=== PATIENT | female | born 1960 | race Caucasian/White ===

== ENCOUNTER 2016-12-30 16:35 | Emergency (ER) | payer SELFPAY ==
[2016-12-30 16:36] VITALS: BMI 28.9
[2016-12-30 16:49] VITALS: O2SAT 98
--- NOTE | 2016-12-30 17:07 | C.PDOC ---
History Of Present Illness 56 y/o female, with history of diabetes, hyperlipidemia, born with 1 kidney, presents to ED with c/o left flank pain for 3 days. Denies fevers, nausea, vomiting, or other complaints. Time Seen by Provider: 12/30/16 16:58 Chief Complaint (Nursing): Female Genitourinary History Per: Patient History/Exam Limitations: no limitations Onset/Duration Of Symptoms: Days Current Symptoms Are (Timing): Still Present Associated Symptoms: denies: Fever, Chills, Nausea, Vomiting, Diarrhea Recent travel outside of the [place]: No Abnormal Vaginal Bleeding: No Past Medical History Reviewed: Historical Data, Nursing Documentation, Vital Signs Vital Signs: Last Vital Signs Temp 97.6 F 12/30/16 19:29 Pulse 76 12/30/16 19:29 Resp 18 12/30/16 19:29 BP 128/85 12/30/16 19:29 Pulse Ox 98 12/30/16 19:29 - Medical History PMH: Gastritis, Hyperlipidemia Surgical History: Family History: States: Unknown Family Hx - Social History Hx Alcohol Use: No Hx Substance Use: No - Immunization History Hx Tetanus Toxoid Vaccination: Yes Hx Influenza Vaccination: No (2 WKS AGO) Hx Pneumococcal Vaccination: No Review Of Systems Except As Marked, All Systems Reviewed And Found Negative. Constitutional: Negative for: Fever, Chills Cardiovascular: Negative for: Chest Pain Respiratory: Negative for: Cough, Shortness of Breath, Wheezing Gastrointestinal: Positive for: Other (left flank pain ). Negative for: Nausea , Vomiting Genitourinary: Negative for: Dysuria, Hematuria, Pelvic Pain Skin: Negative for: Rash Physical Exam - Physical Exam Appears: Non-toxic, No Acute Distress Skin: Normal Color, Warm, Dry Head: Atraumatic, Normacephalic Oral Mucosa: Moist Chest: Symmetrical Cardiovascular: Rhythm Regular Respiratory: Normal Breath Sounds, No Rales, No Rhonchi, No Wheezing Gastrointestinal/Abdominal: Normal Exam, Soft, No Tenderness, No Guarding, No Rebound Back: CVA Tenderness (left) Extremity: Normal ROM, Capillary Refill (< @ sec.) Neurological/Psych: Oriented x3 ED Course And Treatment - Laboratory Results Result Diagrams: 12/30/16 17:20 12/30/16 17:20 O2 Sat by Pulse Oximetry: 98 (RA) Pulse Ox Interpretation: Normal Medical Decision Making Medical Decision Making: ro renal stone, uti/pyelo labs imagng pendign CT abdomen/pelvis, labs, UA ordered and reviewed. Treated with Tylenol. pt notified to discuss reslts of ct with pmd. pain improved. Disposition - Disposition Referrals: Count Includes [facility] [Outside] [facility] [Outside] Chino Lopez MD [Staff Provider] - Disposition: HOME/ ROUTINE Disposition Time: 07:00 Condition: STABLE Additional Instructions: please follow up with your doctor/specialist. return to er with worsening symptoms or concerns Prescriptions: Ciprofloxacin [Cipro] 500 mg PO BID #14 tab Instructions: Urinary Tract Infection in Women (GEN), Flank Pain (ED) Forms: [employer] (Sami) Print Language: BANGLADESHI - Clinical Impression Clinical Impression: Flank pain, UTI (urinary tract infection) - Scribe Statement The provider has reviewed the documentation as recorded by the Scribe SM All medical record entries made by the Scribe were at my direction and personally dictated by me. I have reviewed the chart and agree that the record accurately reflects my personal performance of the history, physical exam, medical decision making, and the department course for this patient. I have also personally directed, reviewed, and agree with the discharge instructions and disposition.
[2016-12-30 17:27] LABS: BASO # 0.1 K/uL (0.0-0.2); BASO % 0.7 % (0.0-2.0); EOS % 0.5 % (0.0-4.0); HEMATOCRIT 41.4 % (34.0-47.0); LYMPH # 2.6 K/uL (1.0-4.3); LYMPH % 32.7 % (20.0-40.0); MEAN CELL VOLUME 84.2 fL (81.0-99.0); MEAN CORPUSCULAR HEMOGLOBIN 28.3 pg (27.0-31.0); MEAN CORPUSCULAR HGB CONC 33.6 g/dL (33.0-37.0); MEAN PLATELET VOLUME 8.6 fL (7.2-11.7); MONO # 0.4 K/uL (0.0-0.8); MONO % 4.8 % (0.0-10.0); RED CELL DISTRIBUTION WIDTH 13.7 % (11.5-14.5); WHITE BLOOD COUNT 7.9 K/uL (4.8-10.8)
[2016-12-30 17:36] LABS: RBC URINE 2 /hpf (0-3); URINE BACTERIA RARE (<OCC); URINE BILIRUBIN NEGATIVE (NEGATIVE); URINE BLOOD NEGATIVE (NEGATIVE); URINE COLOR Straw (YELLOW); URINE GLUCOSE (UA) 3+ mg/dL (Normal); URINE KETONE NEGATIVE (NEGATIVE); URINE LEUKOCYTE ESTERASE 1+ Leu/uL (Negative); URINE PROTEIN NEGATIVE (NEGATIVE); URINE UROBILINOGEN NORMAL mg/dL (0.2-1.0); WBC URINE 13 /hpf (0-5)
[2016-12-30 17:37] LABS: INR 0.9
[2016-12-30 17:38] LABS: ALB/GLOB RATIO 1.4 (1.0-2.1); ALKALINE PHOSPHATASE 123 U/L (38-126); ALT/SGPT 40 U/L (9-52); AST/SGOT 24 U/L (14-36); BILIRUBIN,TOTAL 0.7 mg/dL (0.2-1.3); BLOOD UREA NITROGEN 10 mg/dL (7-17); CARBON DIOXIDE 25 mmol/L (22-30); CHLORIDE 98 mmol/L (98-107); GFR AFRICAN-AMERICAN > 60; GLUCOSE,RANDOM 250 mg/dL (65-105); POTASSIUM 3.8 mmol/L (3.6-5.2); SODIUM 135 mmol/L (132-148); TOTAL PROTEIN 7.8 g/dL (6.3-8.3)
[2016-12-30] MEDS ORDERED: Ciprofloxacin 400mg/200ml D5W 400 MG/200 ML BAG IVPB STA (17:44)
[2016-12-30] MEDS ORDERED: Ciprofloxacin 400mg/200ml D5W 400 MG/200 ML BAG IVPB ONE (17:53)
--- NOTE | 2016-12-30 17:59 | CT ---
PROCEDURE: CT Abdomen and Pelvis without Oral or IV contrast. HISTORY: abd pain COMPARISON: CT abdomen and pelvis without contrast performed 12/30/16 TECHNIQUE: Contiguous axial images of the abdomen and pelvis. No oral or IV contrast administered. Coronal and Sagittal reformats generated and reviewed. Radiation dose: Total exam DLP = 398.20 mGy-cm. This CT exam was performed using one or more of the following dose reduction techniques: Automated exposure control, adjustment of the mA and/or kV according to patient size, and/or use of iterative reconstruction technique. FINDINGS: There is limited evaluation of the solid organs without the administration of IV contrast. LOWER THORAX: Mild bibasilar atelectasis. No visible pleural effusion or pneumothorax. LIVER: Unremarkable unenhanced appearance. GALLBLADDER AND BILE DUCTS: Unremarkable unenhanced appearance. PANCREAS: Unremarkable unenhanced appearance. SPLEEN: Unremarkable unenhanced appearance. ADRENALS: Soft tissue within the right upper quadrant appears to reflect an adrenal gland with a low density nodule containing an associated punctate calcification. Unremarkable unenhanced appearance of the left adrenal gland. KIDNEYS AND URETERS: Absent right kidney. No hydronephrosis or obstructing calculus of the left kidney. BLADDER: The urinary bladder appears unremarkable. REPRODUCTIVE: Uterus is present. APPENDIX: The appendix appears within normal limits of caliber. No secondary signs of acute appendicitis. BOWEL: The stomach is nondistended. Lack of oral contrast limits evaluation for bowel pathology. The bowel loops appear within normal limits of caliber without evidence of intestinal obstruction. PERITONEUM: No significant free fluid. No definite free air. LYMPH NODES: No bulky lymphadenopathy identified. VASCULATURE: No aortic aneurysm. BONES: No acute osseous abnormality is detected. OTHER FINDINGS: 7 mm fat containing umbilical hernia. Calcifications of the bilateral gluteal soft tissues, likely injection granulomas. IMPRESSION: Mild bibasilar atelectasis. Soft tissue within the right upper quadrant appears to reflect an adrenal gland with a low density nodule containing an associated punctate calcification. Absent right kidney. No hydronephrosis or obstructing calculus of the left kidney. 7 mm fat containing umbilical hernia. Additional incidental findings as above.
[2016-12-30 19:31] VITALS: BP 128/85; PULSE 76; RESP 18; TEMP 97.6
== END 2016-12-30 19:46 | disposition home or self-care (01) ==
LOC: C.ER 16:35
DX: N39.0 Urinary tract infection, site not specified (principal); R10.9 Unspecified abdominal pain
CPT/HCPCS: 74176; 80053; 81001; 83690; 84703; 85025; 85610; 85730; 87086; 96374; 99284; J0744

== ENCOUNTER 2017-01-23 12:06 | Emergency (ER) | payer OTHER ==
[2017-01-23 12:06] VITALS: BMI 28.9
[2017-01-23 12:11] VITALS: BP 146/87; PULSE 85; RESP 20; TEMP 97.9; O2SAT 97
--- NOTE | 2017-01-23 13:02 | C.PDOC ---
History Of Present Illness 57 y/o F p/w facial rash x 3 weeks. Patient states rash was present over the entire face initially, seemed to improve, and then recurred in its current distribution more severely. She states the skin feels burning, tight, and warm. She denies any difficulty breathing or swallowing. Denies fever, stiff neck, vomiting. She states she does use facial creams. She states she has follow up with PMD on Wednesday. Time Seen by Provider: 01/23/17 12:48 Chief Complaint (Nursing): Abnormal Skin Integrity Past Medical History Vital Signs: Last Vital Signs Temp 97.9 F 01/23/17 12:10 Pulse 85 01/23/17 12:10 Resp 20 01/23/17 12:10 BP 146/87 01/23/17 12:10 Pulse Ox 97 01/23/17 13:02 - Medical History PMH: Gastritis, Hyperlipidemia Surgical History: Family History: States: Unknown Family Hx - Social History Hx Alcohol Use: No Hx Substance Use: No - Immunization History Hx Tetanus Toxoid Vaccination: Yes Hx Influenza Vaccination: No (2 WKS AGO) Hx Pneumococcal Vaccination: No Review Of Systems Except As Marked, All Systems Reviewed And Found Negative. Constitutional: Negative for: Fever Respiratory: Negative for: Shortness of Breath Physical Exam - Physical Exam Additional Physical Exam Comments: Head: NC/AT Eyes: PERRL ENT: No swelling, no pharyngeal erythema. Resp: No accessory muscle use. Skin: Erythematous, blanching, nontender rash to chin, philtrum. ED Course And Treatment O2 Sat by Pulse Oximetry: 97 Medical Decision Making Medical Decision Making: Patient without fever or tenderness. Unlikely cellulitis. Instructed to return to ED immediately for any fever. Other differential includes scleroderma, dermatitis, Lupus, urticaria. Instructed patient to keep appointment on Wednesday for follow up. Will initially treat with Benadryl and Pepcid and 1 dose decadron now. Disposition - Disposition Referrals: Ashley Mas MD [Medical Doctor] - Disposition: HOME/ ROUTINE Disposition Time: 13:02 Condition: STABLE Prescriptions: DiphenhydrAMINE [Benadryl] 2 cap PO Q8 #25 cap Famotidine [Pepcid] 1 tab PO BID #14 tab Instructions: Acute Rash (ED) Forms: [employer] (Yoruba) - Clinical Impression Clinical Impression: Facial rash
== END 2017-01-23 13:19 | disposition home or self-care (01) ==
LOC: C.ER 12:06
DX: R21 Rash and other nonspecific skin eruption (principal); E78.5 Hyperlipidemia, unspecified
CPT/HCPCS: 99283; J8540

== ENCOUNTER 2017-12-02 23:19 | Inpatient (IN) | payer OTHER ==
[2017-12-02 23:20] VITALS: BMI 28.9
[2017-12-02] MEDS ORDERED: Alum-Mag Hydrox-Simethicone Susp (30 mL) PO STA (23:58)
[2017-12-03] MEDS ORDERED: Alum-Mag Hydrox-Simethicone Susp (30 mL) ONE (00:06)
--- NOTE | 2017-12-03 00:38 | C.PDOC ---
History Of Present Illness 57 y/o F c PMHx HLD, DM p/w epigastric pain x 3 hours. Pain is epigastric, radiates up to chest and to throat, tastes bitter taste in her mouth. States symptoms began while eating. Has never been evaluated medically for these symptoms and did not take anything at home. Denies fever, cough, dyspnea, vomiting, diaphoresis. <SharminFemi Mcneil - Last Filed: 12/03/17 00:42> <SharminFemi Mcneil - Last Filed: 12/03/17 00:42> <Evaristo Johnson E - Last Filed: 12/03/17 01:47> Time Seen by Provider: 12/02/17 23:32 Chief Complaint (Nursing): Chest Pain Past Medical History Vital Signs: Last Vital Signs Temp 98.3 F 12/02/17 23:25 Pulse 83 12/02/17 23:25 Resp 14 12/02/17 23:25 BP 138/88 12/02/17 23:25 Pulse Ox 98 12/02/17 23:25 - Medical History PMH: Gastritis, Hyperlipidemia Surgical History: Family History: States: Unknown Family Hx - Social History Hx Alcohol Use: No Hx Substance Use: No - Immunization History Hx Tetanus Toxoid Vaccination: Yes Hx Influenza Vaccination: No (2 WKS AGO) Hx Pneumococcal Vaccination: No <Femi Finney - Last Filed: 12/03/17 00:42> Vital Signs: Last Vital Signs Temp 98.3 F 12/02/17 23:25 Pulse 83 12/02/17 23:25 Resp 14 12/02/17 23:25 BP 138/88 12/02/17 23:25 Pulse Ox 98 12/03/17 00:42 <Evaristo Johnson E - Last Filed: 12/03/17 01:47> Review Of Systems Except As Marked, All Systems Reviewed And Found Negative. Constitutional: Negative for: Fever Respiratory: Negative for: Shortness of Breath <SharminFemi Mcneil - Last Filed: 12/03/17 00:42> Physical Exam - Physical Exam Additional Physical Exam Comments: Gen: NAD Head: NC/AT Eyes: PERRL ENT: MMM Neck: Supple Chest: No tenderness CV: Reg rate Lungs: CTA b/l Abd: Soft, NT, ND Back: No CVA tenderness Extremities: No edema Skin: No rash Neuro: Alert, no focal deficit <Femi Finney - Last Filed: 12/03/17 00:42> ED Course And Treatment O2 Sat by Pulse Oximetry: 98 <Femi Finney - Last Filed: 12/03/17 00:42> - Laboratory Results Result Diagrams: 12/03/17 00:31 12/03/17 00:31 <Evaristo Johnson E - Last Filed: 12/03/17 01:47> Medical Decision Making Medical Decision Making: EKG NSR 80 bpm, RBBB, no ST elevations. Unchanged from 2014. Pepcid, Maalox administered. CXR no consolidation. States feels "50% better" after medications. <SharminFemi Mcneil - Last Filed: 12/03/17 00:42> Medical Decision Making: signed over @ 0100 to f/u labs and adm for chest discomfort pt seen and examined, vague epigastric discomfort with palp sharp tenderness to b/l sternal costochondral areas, no rash much of initial complaint improved with Maalox. pt resting comfortably on re-eval. pt insists these are NOT her initial complaints, and that the presenting discomfort is "inside" d/w Dr. Xavier, Hospitalist, ok to admit @ 0145 <Evaristo Johnson E - Last Filed: 12/03/17 01:47> Disposition <Femi Finney - Last Filed: 12/03/17 00:42> Doctor Will See Patient In The: Hospital Counseled Patient/Family Regarding: Studies Performed, Diagnosis - Disposition Disposition Time: 01:47 <Evaristo Johnson - Last Filed: 12/03/17 01:47> - Disposition Disposition: HOSPITALIZED Condition: GOOD Forms: [employer] (Armenian) - Clinical Impression Clinical Impression: Chest discomfort, Chest wall discomfort
[2017-12-03 00:39] LABS: BASO % 0.6 % (0.0-2.0); EOS # 0.1 K/uL (0.0-0.7); EOS % 1.1 % (0.0-4.0); HEMOGLOBIN 13.2 g/dL (11.0-16.0); LYMPH # 2.9 K/uL (1.0-4.3); MEAN CORPUSCULAR HEMOGLOBIN 28.9 pg (27.0-31.0); MONO # 0.4 K/uL (0.0-0.8); MONO % 6.1 % (0.0-10.0); NEUT # 3.7 K/uL (1.8-7.0); NEUT % 52.2 % (50.0-75.0); NRBC % 0.1 % (0.0-2.0); RBC 4.56 Mil/uL (3.80-5.20); RED CELL DISTRIBUTION WIDTH 13.7 % (11.5-14.5); WHITE BLOOD COUNT 7.2 K/uL (4.8-10.8)
[2017-12-03 00:56] LABS: ALB/GLOB RATIO 1.7 (1.0-2.1); ALBUMIN 4.4 g/dL (3.5-5.0); ALT/SGPT 48 U/L (9-52); AST/SGOT 27 U/L (14-36); BLOOD UREA NITROGEN 19 mg/dL (7-17); CALCIUM 9.6 mg/dl (8.6-10.4); GFR NON-AFRICAN AMERICAN > 60; LIPASE 142 U/L (23-300)
[2017-12-03 01:08] LABS: CK-MB 0.87 ng/mL (0.0-3.38)
[2017-12-03 02:43] VITALS: RESP 20
--- NOTE | 2017-12-03 02:58 | CP.PCM.HP ---
<Yoshi Duff - Last Filed: 12/03/17 03:18> History of Present Illness - History of Present Illness History of Present Illness: CC: stomach burning 57 Y F/ w PMHx of DM, HLD, ectopic , 1 kidney (congenital), 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 Patient states she was eating her dinner around 8pm and started having intense stomach burning that radiated up through her chest into her mouth. Patient states she additionally has a bitter taste in her mouth. Patient states burning censation is 5/10 and had seen her primary doctor for a similar complaint about 1 week ago and it was recommended for a endoscopy but patient has not had a ance to schedule it yet. Patient denies chest pain, SOB, nausea, vomiting, fevers, chills, dysuria, change in bowel movements, headaches, vision changes ROS: chest pain, SOB, nausea, vomiting, fevers, chills, dysuria, change in bowel movements, headaches, vision changes PMD: Dr. Mas ([facility]) PMHx: DM, HLD, ectopic , 1 kidney (congenital), 9cm resection Meds: Mulhall 1000mg 3 daily, metformin 1000mg Q12H Glimepiride 4mg daily, Lipator 40mg daily, januvia 100mg daily, vit D3 1000U daily, ranitidine 300mg daily PSHx: 9 cm bowel removal 2/2 to obstruction, ectopic Allergies: Penicillin - hives SHx: Denies tobacco, ETOH, illicit drug use FHx: Father - diabetes, mother - healthy Present on Admission - Present on Admission Any Indicators Present on Admission: No Review of Systems - Constitutional Constitutional: absent: Chills, Headache, Increased Appetite - EENT Eyes: absent: Blurred Vision Ears: absent: Decreased Hearing Nose/Mouth/Throat: absent: Nasal Congestion, Dry Mouth, Mouth Pain - Cardiovascular Cardiovascular: absent: Chest Pain, Dyspnea, Leg Edema - Respiratory Respiratory: absent: Dyspnea, Wheezing, Pain on Inspiration - Gastrointestinal Gastrointestinal: Heartburn. absent: Abdominal Pain, Nausea, Vomiting - Genitourinary Genitourinary: absent: Change in Urinary Stream - Musculoskeletal Musculoskeletal: absent: Abnormal Gait, Arthralgias - Neurological Neurological: absent: Numbness Past Patient History - Infectious Disease Hx of Infectious Diseases: None - Past Social History Smoking Status: Never Smoked - RENAL Other/Comment: KIDNEY INFECTION - ENDOCRINE/METABOLIC Hx Diabetes Mellitus Type 2: Yes - GASTROINTESTINAL Hx Gastritis: Yes - PSYCHIATRIC Hx Substance Use: No - SURGICAL HISTORY Hx Section: Yes (X2) Other/Comment: intestinal obstruction with colectomy. ectopic preg. - ANESTHESIA Hx Anesthesia: Yes Hx Anesthesia Reactions: No Meds Allergies/Adverse Reactions: Allergies Allergy/AdvReac Type Severity Reaction Status Date / Time Penicillins Allergy Verified 12/02/17 23:30 Physical Exam - Constitutional Appears: Non-toxic, No Acute Distress - Head Exam Head Exam: ATRAUMATIC, NORMAL INSPECTION, NORMOCEPHALIC - Eye Exam Eye Exam: EOMI, Normal appearance, PERRL Pupil Exam: NORMAL ACCOMODATION - ENT Exam ENT Exam: Mucous Membranes Moist - Respiratory Exam Respiratory Exam: Clear to Auscultation Bilateral, NORMAL BREATHING PATTERN. absent: Rales, Rhonchi, Wheezes - Cardiovascular Exam Cardiovascular Exam: +S1, +S2. absent: Systolic Murmur - GI/Abdominal Exam GI & Abdominal Exam: Guarding, Normal Bowel Sounds, Soft Additional comments: patient was gaurding on deep palpation in all 4 quads no deformities observed patient otherwise lying comfortably - Extremities Exam Extremities exam: Positive for: normal inspection. Negative for: calf tenderness, pedal edema - Back Exam Back exam: absent: CVA tenderness (L), CVA tenderness (R) - Neurological Exam Neurological exam: Alert, CN II-XII Intact, Oriented x3 - Psychiatric Exam Psychiatric exam: Normal Affect, Normal Mood - Skin Skin Exam: Dry, Intact, Normal Color, Warm Results - Vital Signs Recent Vital Signs: Last Vital Signs Temp 98 F 12/03/17 02:40 Pulse 74 12/03/17 02:40 Resp 20 12/03/17 02:40 BP 131/87 12/03/17 02:40 Pulse Ox 98 12/03/17 02:40 - Labs Result Diagrams: 12/03/17 00:31 12/03/17 00:31 Labs: Laboratory Results - last 24 hr 12/03/17 12/03/17 00:31 00:31 WBC 7.2 RBC 4.56 Hgb 13.2 Hct 38.8 MCV 85.0 MCH 28.9 MCHC 34.0 RDW 13.7 Plt Count 271 MPV 9.0 Neut % (Auto) 52.2 Lymph % (Auto) 40.0 Norman % (Auto) 6.1 Eos % (Auto) 1.1 Baso % (Auto) 0.6 Neut # (Auto) 3.7 Lymph # (Auto) 2.9 Norman # (Auto) 0.4 Eos # (Auto) 0.1 Baso # (Auto) 0.0 Sodium 141 Potassium 4.2 Chloride 102 Carbon Dioxide 28 Anion Gap 15 BUN 19 H Creatinine 0.7 Est GFR ( Amer) > 60 Est GFR (Non-Af Amer) > 60 Random Glucose 188 H Calcium 9.6 Total Bilirubin 0.4 AST 27 ALT 48 Alkaline Phosphatase 97 Total Creatine Kinase 52 CK-MB (Mass) 0.87 Troponin I < 0.0120 Total Protein 7.0 Albumin 4.4 Globulin 2.6 Albumin/Globulin Ratio 1.7 Lipase 142 Assessment & Plan - Assessment and Plan (Free Text) Assessment: 57 Y F/ w PMHx of DM, HLD, ectopic , 1 kidney (congenital), 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 R/o ACS - Trops x1 negative, EKG RBBB, CXR no acute changes visualized, will await for official read - Vitals WNL - Repeat TIMA & EKG @ 6am & 12pm - F/u TSH Hyperlipidemia - C/w home medications: Lipitor 40mg HS Mulhall 3 1000mg daily - F/u lipid panel DM - c/w home medications: metformin 1000mg BID januvia 100 mg daily glimepiride 4mg daily - F/u HgA1C - accuchecks ACHS - low ISS Prophylasis - DVT: risk score 1, Out bed ambulation - GI: ranitidine 150 mg BID <Willem Xavier - Last Filed: 12/03/17 06:31> Results - Vital Signs Recent Vital Signs: Last Vital Signs Temp 98 F 12/03/17 02:40 Pulse 74 12/03/17 02:40 Resp 20 12/03/17 02:40 BP 131/87 12/03/17 02:40 Pulse Ox 98 12/03/17 02:40 - Labs Result Diagrams: 12/03/17 00:31 12/03/17 00:31 Labs: Laboratory Results - last 24 hr 12/03/17 12/03/17 12/03/17 00:31 00:31 06:17 WBC 7.2 RBC 4.56 Hgb 13.2 Hct 38.8 MCV 85.0 MCH 28.9 MCHC 34.0 RDW 13.7 Plt Count 271 MPV 9.0 Neut % (Auto) 52.2 Lymph % (Auto) 40.0 Norman % (Auto) 6.1 Eos % (Auto) 1.1 Baso % (Auto) 0.6 Neut # (Auto) 3.7 Lymph # (Auto) 2.9 Norman # (Auto) 0.4 Eos # (Auto) 0.1 Baso # (Auto) 0.0 Sodium 141 Potassium 4.2 Chloride 102 Carbon Dioxide 28 Anion Gap 15 BUN 19 H Creatinine 0.7 Est GFR ( Amer) > 60 Est GFR (Non-Af Amer) > 60 POC Glucose (mg/dL) 124 H Random Glucose 188 H Calcium 9.6 Total Bilirubin 0.4 AST 27 ALT 48 Alkaline Phosphatase 97 Total Creatine Kinase 52 CK-MB (Mass) 0.87 Troponin I < 0.0120 Total Protein 7.0 Albumin 4.4 Globulin 2.6 Albumin/Globulin Ratio 1.7 Lipase 142 Assessment & Plan - Date & Time Date: 12/03/17 (I have seen and examined the patient. I agree with the findings and plan of care as documented by Dr. Duff. Patient with chest pain. History of diabetes. Continue home meds. ROMIx3 with EKG. Observe on tele. Aspirin and Statin. Monitor for acute changes.) Time: 06:30 Attending/Attestation - Attestation I have personally seen and examined this patient.: Yes I have fully participated in the care of the patient.: Yes I have reviewed all pertinent clinical information: Yes
[2017-12-03] MEDS ORDERED: Dextrose 50% SYRINGE Inj (50 ml) IV PRN (03:00)
[2017-12-03] MEDS ORDERED: Glucagon Recombinant 1 mg Inj IM PRN (03:00)
[2017-12-03] MEDS: (Novolog) Insulin Aspart, Recombinant 100 u/ml 10 ml vial SC SCH ×2 (08:26→11:46)
[2017-12-03 08:32] VITALS: TEMP 97.9
[2017-12-03 08:33] LABS: HDL CHOLESTEROL 62 mg/dL (30-70)
--- NOTE | 2017-12-03 08:34 | RAD ---
Date of service: 12/03/2017 HISTORY: epigastric pain radiating to throat COMPARISON: No prior. FINDINGS: LUNGS: The lungs are well inflated and clear. PLEURA: No pleural effusions or pneumothorax. CARDIOVASCULAR: The heart is normal in size. No aortic atherosclerotic calcification present. OSSEOUS STRUCTURES: Within normal limits for the patient's age. VISUALIZED UPPER ABDOMEN: Normal. OTHER FINDINGS: None. IMPRESSION: No active pulmonary disease.
[2017-12-03 08:39] LABS: CK-MB 0.58 ng/mL (0.0-3.38)
[2017-12-03 08:44] LABS: LDL CHOLESTEROL 68 mg/dL (0-129)
--- NOTE | 2017-12-03 09:24 | CP.PCM.PN ---
Subjective - Date & Time of Evaluation Date of Evaluation: 12/03/17 Time of Evaluation: 09:24 - Subjective Subjective: Progress Note for Hospitalist service Objective - Vital Signs/Intake and Output Vital Signs (last 24 hours): Temp Pulse Resp BP Pulse Ox 97.9 F 78 20 110/74 97 12/03/17 08:00 12/03/17 08:00 12/03/17 08:00 12/03/17 08:00 12/03/17 08:00 - Medications Medications: Current Medications Dextrose (Dextrose 50% Inj) 0 ml IV STAT PRN; Protocol PRN Reason: Hypoglycemia Protocol Dextrose (Glutose 15) 0 gm PO ONCE PRN; Protocol PRN Reason: Hypoglycemia Protocol Ergocalciferol (Drisdol 50,000 Intl Units Cap) 1 cap PO QWK [facility] Famotidine (Pepcid) 20 mg PO BID [facility] Glimepiride (Amaryl) 4 mg PO DAILY [facility] Glucagon (Glucagen Diagnostic Kit) 0 mg IM STAT PRN; Protocol PRN Reason: Hypoglycemia Protocol Heparin Sodium (Porcine) (Heparin) 5,000 units SC Q12 [facility] Dextrose (Dextrose 5% In Water 1000 Ml) 1,000 mls @ 0 mls/hr IV .Q0M PRN; Protocol PRN Reason: Hypoglycemia Protocol Insulin Aspart (Novolog) 0 unit SC ACHS [facility]; Protocol Last Admin: 12/03/17 08:26 Dose: Not Given Metformin HCl (Glucophage) 1,000 mg PO BID [facility] Cllsx-2-Rxkb Ethyl Esters (Lovaza) 1 gm PO BID [facility] Rosuvastatin Calcium (Crestor) 20 mg PO HS [facility] Sitagliptin Phosphate (Januvia) 100 mg PO DAILY [facility] - Labs Labs: 12/03/17 00:31 12/03/17 00:31
[2017-12-03] MEDS ORDERED: Omega-3-Acid Ethyl Esters 1 GM Cap PO SCH (10:00)
[2017-12-03] MEDS ORDERED: Ergocalciferol 50,000 Intl Units Cap PO SCH (10:00)
[2017-12-03 13:27] LABS: CK-MB 0.65 ng/mL (0.0-3.38)
--- NOTE | 2017-12-03 17:02 | CP.PCM.DIS ---
<Jona Vanessa - Last Filed: 12/03/17 20:53> Provider - Provider Date of Admission: 12/03/17 01:39 Attending physician: Willem Xavier MD Primary care physician: Dr. Mas Time Spent in preparation of Discharge (in minutes): 35 Hospital Course - Lab Results Lab Results: Most Recent Lab Values WBC 7.2 K/uL (4.8-10.8) 12/03/17 00:31 RBC 4.56 Mil/uL (3.80-5.20) 12/03/17 00:31 Hgb 13.2 g/dL (11.0-16.0) 12/03/17 00:31 Hct 38.8 % (34.0-47.0) 12/03/17 00:31 MCV 85.0 fL (81.0-99.0) 12/03/17 00:31 MCH 28.9 pg (27.0-31.0) 12/03/17 00:31 MCHC 34.0 g/dL (33.0-37.0) 12/03/17 00:31 RDW 13.7 % (11.5-14.5) 12/03/17 00:31 Plt Count 271 K/uL (130-400) 12/03/17 00:31 MPV 9.0 fL (7.2-11.7) 12/03/17 00:31 Neut % (Auto) 52.2 % (50.0-75.0) 12/03/17 00:31 Lymph % (Auto) 40.0 % (20.0-40.0) 12/03/17 00:31 Nobles % (Auto) 6.1 % (0.0-10.0) 12/03/17 00:31 Eos % (Auto) 1.1 % (0.0-4.0) 12/03/17 00:31 Baso % (Auto) 0.6 % (0.0-2.0) 12/03/17 00:31 Neut # (Auto) 3.7 K/uL (1.8-7.0) 12/03/17 00:31 Lymph # (Auto) 2.9 K/uL (1.0-4.3) 12/03/17 00:31 Nobles # (Auto) 0.4 K/uL (0.0-0.8) 12/03/17 00:31 Eos # (Auto) 0.1 K/uL (0.0-0.7) 12/03/17 00:31 Baso # (Auto) 0.0 K/uL (0.0-0.2) 12/03/17 00:31 Sodium 141 mmol/L (132-148) 12/03/17 00:31 Potassium 4.2 mmol/L (3.6-5.2) 12/03/17 00:31 Chloride 102 mmol/L (98-107) 12/03/17 00:31 Carbon Dioxide 28 mmol/L (22-30) 12/03/17 00:31 Anion Gap 15 (10-20) 12/03/17 00:31 BUN 19 mg/dL (7-17) H 12/03/17 00:31 Creatinine 0.7 mg/dL (0.7-1.2) 12/03/17 00:31 Est GFR ( Amer) > 60 12/03/17 00:31 Est GFR (Non-Af Amer) > 60 12/03/17 00:31 POC Glucose (mg/dL) 114 mg/dL (65-110) H 12/03/17 11:40 Random Glucose 188 mg/dL (65-105) H 12/03/17 00:31 Hemoglobin A1c 9.8 % (4.2-6.5) H D 12/03/17 07:11 Calcium 9.6 mg/dl (8.6-10.4) 12/03/17 00:31 Total Bilirubin 0.4 mg/dL (0.2-1.3) 12/03/17 00:31 AST 27 U/L (14-36) 12/03/17 00:31 ALT 48 U/L (9-52) 12/03/17 00:31 Alkaline Phosphatase 97 U/L (38-126) 12/03/17 00:31 Total Creatine Kinase 43 U/L (30-135) 12/03/17 12:58 CK-MB (Mass) 0.65 ng/mL (0.0-3.38) 12/03/17 12:58 Troponin I < 0.0120 ng/mL (0.00-0.120) 12/03/17 12:58 Total Protein 7.0 g/dL (6.3-8.3) 12/03/17 00:31 Albumin 4.4 g/dL (3.5-5.0) 12/03/17 00:31 Globulin 2.6 gm/dL (2.2-3.9) 12/03/17 00:31 Albumin/Globulin Ratio 1.7 (1.0-2.1) 12/03/17 00:31 Triglycerides 313 mg/dL (0-149) H 12/03/17 07:11 Cholesterol 184 mg/dL (0-199) 12/03/17 07:11 LDL Cholesterol Direct 68 mg/dL (0-129) 12/03/17 07:11 HDL Cholesterol 62 mg/dL (30-70) 12/03/17 07:11 Lipase 142 U/L (23-300) 12/03/17 00:31 TSH 3rd Generation 2.62 mIU/L (0.46-4.68) 12/03/17 07:11 - Hospital Course Hospital Course: On admission: 57 Y F/ w PMHx of DM, HLD, ectopic , 1 kidney (congenital), 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 Patient states she was eating her dinner around 8pm and started having intense stomach burning that radiated up through her chest into her mouth. Patient states she additionally has a bitter taste in her mouth. Patient states burning censation is 5/10 and had seen her primary doctor for a similar complaint about 1 week ago and it was recommended for a endoscopy but patient has not had a chance to schedule it yet. Patient denies chest pain, SOB, nausea, vomiting, fevers, chills, dysuria, change in bowel movements, headaches, vision changes Hospital course: Patient was admitted for chest pain to rule out acute coronary syndrome. Serial troponins were negative. Serial EKGs revealed Right bundle branch block which was unchanged from prior EKG 01/29/2014. Patient's chest discomfort resolved during hospitalization. Patient's vital signs remained stable during hospitalization. Labwork revealed patient had elevated A1c of 9.8. Patient stated that she was recently added on Glimepiride, in addition to her Metformin and Januvia. Upon discharge, patient did not experience any chest discomfort, shortness of breath or palpitations, fevers, chills, headache, dizziness, nausea, vomiting. Imaging: CXR no acute disease Discharge summary: Patient is medically stable to be discharged home. Patient advised to follow up with PMD Dr. Mas, and ALIC[facility] for outpatient EGD and outpatient stress test. Patient noted to have RBBB unchanged from prior EKG in 01/29/2014. No ST changes noted on EKG. Patient was noted to have elevated Hemoglobin A1c 9.8. Patient was recently started on Glimepiride 4mg daily (8days ago), in addition to Metformin 1000mg PO and Januvia. The importance of following up with PMD regarding A1c levels was discussed with patient. Patient stated that she expressed understanding and agreed to follow up with checkroom chief and PMD regarding her diabetes. Prescription: Pepcid 20mg PO twice daily by mouth. Disp # 30 (thirty) El paciente est mdicamente estable para ser dado de faviola a vásquez domicilio. Se recomienda a los pacientes que realicen un seguimiento con PMD Dr. Mas y AL[facility] para la EGD ambulatoria y la prueba de esfuerzo ambulatoria. El paciente observ que el RBBB no haba cambiado con respecto al ECG anterior en 29/01/2014. No se observaron cambios de ST en el ECG. Se observ que el paciente prasad hemoglobina A1c elevada 9.8. El paciente comenz recientemente con Glimepirida 4 mg al da (hace 8 johnson), adems de Metformin 1000 mg PO y Januvia. La importancia del seguimiento con PMD con respecto a los niveles de A1c se discuti con el paciente. La paciente dijo que expres comprensin y mishel hacer un seguimiento con un nutricionista y PMD con respecto a vásquez diabetes. Prescripcin: Pepcid 20mg PO dos veces al da por va oral. Disp # 30 (treinta) Discharge Exam - Head Exam Head Exam: ATRAUMATIC, NORMAL INSPECTION, NORMOCEPHALIC - Eye Exam Eye Exam: EOMI, PERRL - ENT Exam ENT Exam: Mucous Membranes Moist - Neck Exam Neck exam: Full Rom Additional comments: no thyromegaly, no lymphadenopathy - Respiratory Exam Respiratory Exam: Clear to PA & Lateral. absent: Rales, Rhonchi, Wheezes, Stridor - Cardiovascular Exam Cardiovascular Exam: REGULAR RHYTHM, +S1, +S2. absent: Gallop, Rubs, Systolic Murmur - GI/Abdominal Exam GI & Abdominal Exam: Normal Bowel Sounds, Soft, Tenderness (minimal epigastric tenderness ). absent: Diminished Bowel Sounds, Distended, Firm, Guarding, Rigid - Back Exam Back exam: absent: CVA tenderness (L), CVA tenderness (R) - Neurological Exam Neurological exam: Alert, Oriented x3 - Psychiatric Exam Psychiatric exam: Normal Affect, Normal Mood - Skin Skin Exam: Dry, Intact, Warm Discharge Plan - Discharge Medications Prescriptions: RX: Famotidine [Pepcid] 20 mg PO BID #60 tab - Follow Up Plan Condition: STABLE Disposition: HOME/ ROUTINE Instructions: Type 2 Diabetes, Cardiac Stress Test, Diabetes Diet , Chest Pain (DC), Upper GI Endoscopy (DC), Famotidine Additional Instructions: Patient is medically stable to be discharged home. Patient advised to follow up with PMD Dr. Mas, and GI for outpatient EGD and outpatient stress test. Patient noted to have RBBB unchanged from prior EKG in 01/29/2014. No ST changes noted on EKG. Patient was noted to have elevated Hemoglobin A1c 9.8. Patient was recently started on Glimepiride 4mg daily (8days ago), in addition to Metformin 1000mg PO and Januvia. The importance of following up with PMD regarding A1c levels was discussed with patient. Patient stated that she expressed understanding and agreed to follow up with checkroom chief and PMD regarding her diabetes. Prescription: Pepcid 20mg PO twice daily by mouth. Disp # 30 (thirty) El paciente est mdicamente estable para ser dado de faviola a vásquez domicilio. Se recomienda a los pacientes que realicen un seguimiento con PMD Dr. Mas y [facility] para la EGD ambulatoria y la prueba de esfuerzo ambulatoria. El paciente observ que el RBBB no haba cambiado con respecto al ECG anterior en 29/01/2014. No se observaron cambios de ST en el ECG. Se observ que el paciente prasad hemoglobina A1c elevada 9.8. El paciente comenz recientemente con Glimepirida 4 mg al da (hace 8 johnson), adems de Metformin 1000 mg PO y Januvia. La importancia del seguimiento con PMD con respecto a los niveles de A1c se discuti con el paciente. La paciente dijo que expres comprensin y mishel hacer un seguimiento con un nutricionista y PMD con respecto a vásquez diabetes. Prescripcin: Pepcid 20mg PO dos veces al da por va oral. Disp # 30 (treinta) <Dia Mcdaniel - Last Filed: 12/11/17 17:11> Provider - Provider Date of Admission: 12/03/17 01:39 Attending physician: Willem Xavier MD Hospital Course - Lab Results Lab Results: Most Recent Lab Values WBC 7.2 K/uL (4.8-10.8) 12/03/17 00:31 RBC 4.56 Mil/uL (3.80-5.20) 12/03/17 00:31 Hgb 13.2 g/dL (11.0-16.0) 12/03/17 00:31 Hct 38.8 % (34.0-47.0) 12/03/17 00:31 MCV 85.0 fL (81.0-99.0) 12/03/17 00:31 MCH 28.9 pg (27.0-31.0) 12/03/17 00:31 MCHC 34.0 g/dL (33.0-37.0) 12/03/17 00:31 RDW 13.7 % (11.5-14.5) 12/03/17 00:31 Plt Count 271 K/uL (130-400) 12/03/17 00:31 MPV 9.0 fL (7.2-11.7) 12/03/17 00:31 Neut % (Auto) 52.2 % (50.0-75.0) 12/03/17 00:31 Lymph % (Auto) 40.0 % (20.0-40.0) 12/03/17 00:31 Nobles % (Auto) 6.1 % (0.0-10.0) 12/03/17 00:31 Eos % (Auto) 1.1 % (0.0-4.0) 12/03/17 00:31 Baso % (Auto) 0.6 % (0.0-2.0) 12/03/17 00:31 Neut # (Auto) 3.7 K/uL (1.8-7.0) 12/03/17 00:31 Lymph # (Auto) 2.9 K/uL (1.0-4.3) 12/03/17 00:31 Nobles # (Auto) 0.4 K/uL (0.0-0.8) 12/03/17 00:31 Eos # (Auto) 0.1 K/uL (0.0-0.7) 12/03/17 00:31 Baso # (Auto) 0.0 K/uL (0.0-0.2) 12/03/17 00:31 Sodium 141 mmol/L (132-148) 12/03/17 00:31 Potassium 4.2 mmol/L (3.6-5.2) 12/03/17 00:31 Chloride 102 mmol/L (98-107) 12/03/17 00:31 Carbon Dioxide 28 mmol/L (22-30) 12/03/17 00:31 Anion Gap 15 (10-20) 12/03/17 00:31 BUN 19 mg/dL (7-17) H 12/03/17 00:31 Creatinine 0.7 mg/dL (0.7-1.2) 12/03/17 00:31 Est GFR ( Amer) > 60 12/03/17 00:31 Est GFR (Non-Af Amer) > 60 12/03/17 00:31 POC Glucose (mg/dL) 76 mg/dL (65-110) 12/03/17 12:36 Random Glucose 188 mg/dL (65-105) H 12/03/17 00:31 Hemoglobin A1c 9.8 % (4.2-6.5) H D 12/03/17 07:11 Calcium 9.6 mg/dl (8.6-10.4) 12/03/17 00:31 Total Bilirubin 0.4 mg/dL (0.2-1.3) 12/03/17 00:31 AST 27 U/L (14-36) 12/03/17 00:31 ALT 48 U/L (9-52) 12/03/17 00:31 Alkaline Phosphatase 97 U/L (38-126) 12/03/17 00:31 Total Creatine Kinase 43 U/L (30-135) 12/03/17 12:58 CK-MB (Mass) 0.65 ng/mL (0.0-3.38) 12/03/17 12:58 Troponin I < 0.0120 ng/mL (0.00-0.120) 12/03/17 12:58 Total Protein 7.0 g/dL (6.3-8.3) 12/03/17 00:31 Albumin 4.4 g/dL (3.5-5.0) 12/03/17 00:31 Globulin 2.6 gm/dL (2.2-3.9) 12/03/17 00:31 Albumin/Globulin Ratio 1.7 (1.0-2.1) 12/03/17 00:31 Triglycerides 313 mg/dL (0-149) H 12/03/17 07:11 Cholesterol 184 mg/dL (0-199) 12/03/17 07:11 LDL Cholesterol Direct 68 mg/dL (0-129) 12/03/17 07:11 HDL Cholesterol 62 mg/dL (30-70) 12/03/17 07:11 Lipase 142 U/L (23-300) 12/03/17 00:31 TSH 3rd Generation 2.62 mIU/L (0.46-4.68) 12/03/17 07:11 Attending/Attestation - Attestation I have personally seen and examined this patient.: Yes I have fully participated in the care of the patient.: Yes I have reviewed all pertinent clinical information, including history, physical exam and plan: Yes
[2017-12-03 17:24] VITALS: BP 118/81; PULSE 83; O2SAT 95
--- NOTE | 2017-12-06 17:35 | CARD ---
APPROVED REPORT Date of service: 12/03/2017 EKG Measurement Heart [id number] <Conclusion> Normal sinus rhythm Right bundle branch block Abnormal ECG
--- NOTE | 2017-12-06 17:35 | CARD ---
APPROVED REPORT Date of service: 12/03/2017 EKG Measurement Heart [id number] <Conclusion> Normal sinus rhythm Right bundle branch block Abnormal ECG
--- NOTE | 2017-12-06 18:18 | CARD ---
APPROVED REPORT Date of service: 12/02/2017 EKG Measurement Heart [id number] <Conclusion> Normal sinus rhythm Right bundle branch block Abnormal ECG
== END 2017-12-03 18:20 | disposition home or self-care (01) | DRG 203 ==
LOC: C.ER 23:19 → C.9E 12-03 01:39 → C.5S 12-03 01:59
PROVIDERS: ADMIT Family Medicine; ATTEND Family Medicine
DX: R07.89 Other chest pain (principal); Q60.0 Renal agenesis, unilateral; E11.9 Type 2 diabetes mellitus without complications; E78.5 Hyperlipidemia, unspecified; I45.10 Unspecified right bundle-branch block; Z83.3 Family history of diabetes mellitus; Z79.84 Long term (current) use of oral hypoglycemic drugs; Z90.49 Acquired absence of other specified parts of digestive tract; Z87.19 Personal history of other diseases of the digestive system

== ENCOUNTER 2018-01-18 12:38 | Emergency (ER) | payer SELFPAY ==
[2018-01-18 13:00] VITALS: BMI 25.2
[2018-01-18 13:06] VITALS: BP 109/76; PULSE 78; RESP 18; TEMP 97; O2SAT 97
[2018-01-18 14:32] LABS: SQUAMOUS EPITHIAL < 1 /hpf (0-5); URINE BACTERIA RARE (<OCC); URINE BILIRUBIN NEGATIVE (NEGATIVE); URINE BLOOD NEGATIVE (NEGATIVE); URINE CLARITY Clear (Clear); URINE COLOR Colorless (YELLOW); URINE GLUCOSE (UA) NORMAL (Normal); URINE LEUKOCYTE ESTERASE NEG Leu/uL (Negative); URINE PROTEIN NEGATIVE (NEGATIVE); URINE UROBILINOGEN NORMAL mg/dL (0.2-1.0)
--- NOTE | 2018-01-18 14:50 | C.PDOC ---
History Of Present Illness 58 year old female presents to the ED for evaluation of dysuria which began 10 days ago, but worsened over the last 4 days. Patient is concerned that she may have a urinary tract infection. Patient reports history of nephrectomy (for unknown reasons). She denies fever, chills, nausea, vomiting. Time Seen by Provider: 01/18/18 13:38 Chief Complaint (Nursing): Abdominal Pain History Per: Patient History/Exam Limitations: no limitations Onset/Duration Of Symptoms: Days (10) Current Symptoms Are (Timing): Worse (past 4 days) Associated Symptoms: Urinary Symptoms (dysuria ). denies: Fever, Chills, Nausea, Vomiting Additional History Per: Patient Past Medical History Reviewed: Historical Data, Nursing Documentation, Vital Signs Vital Signs: Last Vital Signs Temp 97 F L 01/18/18 13:00 Pulse 78 01/18/18 13:00 Resp 18 01/18/18 13:00 BP 109/76 01/18/18 13:00 Pulse Ox 97 01/18/18 13:00 - Medical History PMH: Gastritis, Hyperlipidemia Surgical History: Other Surgeries: nephrectomy Family History: States: Unknown Family Hx - Social History Hx Alcohol Use: No Hx Substance Use: No - Immunization History Hx Tetanus Toxoid Vaccination: Yes Hx Influenza Vaccination: Yes Hx Pneumococcal Vaccination: Yes Review Of Systems Constitutional: Negative for: Fever, Chills Gastrointestinal: Negative for: Nausea, Vomiting Genitourinary: Positive for: Dysuria Physical Exam - Physical Exam Appears: Non-toxic, No Acute Distress Skin: Normal Color, Warm, Dry Head: Atraumatic, Normacephalic Eye(s): bilateral: Normal Inspection Oral Mucosa: Moist Neck: Supple Back: No CVA Tenderness, Paraspinal Tenderness (minor, lumbar ) Pelvic: Other (deferred) Extremity: Normal ROM, Capillary Refill (less than 2 seconds ) Neurological/Psych: Oriented x3, Normal Speech, Normal Cognition ED Course And Treatment - Laboratory Results Lab Interpretation: Normal (ua neg.) O2 Sat by Pulse Oximetry: 97 (on RA) Pulse Ox Interpretation: Normal Progress Note: Urinalysis ordered and reviewed. Motrin PO given. On reassessment, patient is resting comfortably, showing no signs of distress and reports an improvement in her pain. Patient is stable for discharge. She is advised to f/u with her PMD within 1-2 days for further evaluation and/or return to the ED if sx persist or worsen. 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 Disposition Doctor Will See Patient In The: Office Counseled Patient/Family Regarding: Studies Performed, Diagnosis - Disposition Referrals: [facility] [Outside] [facility] [Outside] [facility] [Outside] [facility] [Outside] Disposition: HOME/ ROUTINE Disposition Time: 14:50 Condition: GOOD Additional Instructions: NO hay infeccio'n en la orina NO hay infeccion en vásquez rinon (katlyn) ibuprofeno 400-600 mg cada 6 horas rose necessario para dolor del espalda sigue en la [facility] para oskar cuidados de la vagina. Instructions: Low Back Pain in Adults Forms: [employer] (Cymro) Print Language: FRENCH - Clinical Impression Clinical Impression: Vulvar discomfort, Low back pain - Scribe Statement The provider has reviewed the documentation as recorded by the Scribe (Radha Salgado) Provider Attestation: All medical record entries made by the Scribe were at my direction and personally dictated by me. I have reviewed the chart and agree that the record accurately reflects my personal performance of the history, physical exam, me dical decision making, and the department course for this patient. I have also personally directed, reviewed, and agree with the discharge instructions and disposition.
== END 2018-01-18 14:59 | disposition home or self-care (01) ==
LOC: C.ER 12:38
DX: N90.89 Other specified noninflammatory disorders of vulva and perineum (principal); M54.5 Low back pain

== ENCOUNTER 2018-05-23 11:15 | Emergency (ER) | payer SELFPAY ==
[2018-05-23 11:21] VITALS: BMI 25.7
[2018-05-23 11:23] VITALS: PULSE 90; TEMP 98.6; O2SAT 97
[2018-05-23 11:24] VITALS: BP 136/89
--- NOTE | 2018-05-23 12:05 | C.PDOC ---
History Of Present Illness 58-year-old female presents to the ED for evaluation of bilateral lumbar and thoracic muscle tenderness. Patient states she tripped and fell two days ago while at [employer]. She states symptoms are worse with hot showers and not relieved by Tylenol. Patient has one kidney, so avoids NSAIDS. She denies LOC, head injury, urinary/bowel incontinence, extremity numbness/weakness. Time Seen by Provider: 05/23/18 11:54 Chief Complaint (Nursing): Back Pain History Per: Patient History/Exam Limitations: no limitations Onset/Duration Of Symptoms: Days (2) Current Symptoms Are (Timing): Still Present Quality Of Discomfort: "Pain" Associated Symptoms: denies: Incontinence, New Weakness, New Numbness Past Medical History Reviewed: Historical Data, Nursing Documentation, Vital Signs Vital Signs: Last Vital Signs Temp 98.6 F 05/23/18 11:20 Pulse 90 05/23/18 11:20 Resp 16 05/23/18 11:20 BP 136/89 05/23/18 11:20 Pulse Ox 97 05/23/18 11:20 - Medical History PMH: Gastritis, Hyperlipidemia, Chronic Kidney Disease Surgical History: Family History: States: Unknown Family Hx - Social History Hx Alcohol Use: No Hx Substance Use: No - Immunization History Hx Tetanus Toxoid Vaccination: Yes Hx Influenza Vaccination: Yes Hx Pneumococcal Vaccination: Yes Review Of Systems Genitourinary: Negative for: Incontinence Musculoskeletal: Positive for: Other (b/l lumbar and thoracic muscle tenderness ) Skin: Negative for: Rash, Lesions, Jaundice, Bruising Neurological: Negative for: Weakness, Numbness, Other (head injury, LOC ) Physical Exam - Physical Exam Appears: Non-toxic, No Acute Distress Skin: Normal Color, Warm, Dry, Other (3x3cm, nontender contusion to right upper breast ) Head: Atraumatic, Normacephalic Neck: Supple Chest: Symmetrical, No Deformity, No Tenderness Back: Other (mild tenderness to b/l trapezius and paralumbar regions ) Extremity: Normal ROM, No Tenderness, Capillary Refill (less than 2 seconds ), No Deformity, No Swelling Neurological/Psych: Oriented x3, Normal Speech, Normal Cognition, Normal Motor, Normal Sensation Gait: Other (ambulating rapidly in the ED) ED Course And Treatment O2 Sat by Pulse Oximetry: 97 (on RA) Pulse Ox Interpretation: Normal Progress Note: Motrin PO given. Medical Decision Making Medical Decision Making: strain/sprain b/l trapezius and lower back, contusion to R breast (3x3 cm ecchymosis) worse with heat/tylenol no radiology indicated NSAIDS/ice Disposition Doctor Will See Patient In The: Office Counseled Patient/Family Regarding: Studies Performed, Diagnosis - Disposition Referrals: Eliot Mas MD [Non-Staff] - Disposition: HOME/ ROUTINE Disposition Time: 12:04 Condition: GOOD Additional Instructions: bolsa de hielo 1/2 hora por hora, nada caliente no dominic caliente por 2 zelaya ibuprofeno/advil 400-600 mg cada 6 horas rose necessario Instructions: Muscle Strain, Lumbar Muscle Strain (DC) Forms: [employer] (Thai) Print Language: LAO - Clinical Impression Clinical Impression: Low back strain, Thoracic back sprain, Contusion of breast, right - Scribe Statement The provider has reviewed the documentation as recorded by the Scribe Provider Attestation: All medical record entries made by the Scribe were at my direction and personally dictated by me. I have reviewed the chart and agree that the record accurately reflects my personal performance of the history, physical exam, medical decision making, and the department course for this patient. I have also personally directed, reviewed, and agree with the discharge instructions and disposition.
[2018-05-23 12:15] VITALS: RESP 18
== END 2018-05-23 12:15 | disposition home or self-care (01) ==
LOC: C.ER 11:15
DX: S39.012A Strain of muscle, fascia and tendon of lower back, initial encounter (principal); S23.3XXA Sprain of ligaments of thoracic spine, initial encounter; W01.0XXA Fall on same level from slipping, tripping and stumbling without subsequent striking against object, initial encounter; Y92.22 Religious institution as the place of occurrence of the external cause; E78.5 Hyperlipidemia, unspecified; N18.9 Chronic kidney disease, unspecified